=== PATIENT | male | born 1975 | race Caucasian/White ===

== ENCOUNTER 2023-05-22 11:04 | Emergency (ER) | payer OTHER, SELFPAY ==
[2023-05-22 11:13] VITALS: BP 126/84; PULSE 100; TEMP 36.6; O2SAT 98; BMI 25.8
--- NOTE | 2023-05-22 11:27 | XRR_ITS ---
PROCEDURE INFORMATION: Exam: XR Abdomen Exam date and time: 05/22/2023 12:03 PM Age: 48 years old Clinical indication: Generalized; Prior surgery; Surgery date: 6+ months; Surgery type: Umbilical hernia repair with mesh; Patient HX: Bilateral flank/abdominal pain; Constipation; HX kidney stones & umbilical hernia repair (2019); Additional info: Bilateral flank/abdominal pain; Constipation; HX kidney stones & umbilical hernia repair (2019) TECHNIQUE: Imaging protocol: Radiologic exam of the abdomen. Views: Frontal supine view of the abdomen. 1 View. COMPARISON: No relevant prior studies available. FINDINGS: Several calcified phleboliths are present in the pelvis. Possible 4 mm right upper quadrant calcification which may represent radiodense ingested material within the colon but small gallstone could have this appearance. There is no organomegaly identified. Psoas margins are preserved. Visualized lung bases are grossly clear Gastrointestinal tract: Overall the bowel gas pattern is nonspecific but nonobstructive. Small amount of gas identified within the small intestine. Bones/joints: No acute osseous abnormality evident. XR/XR abdomen 1V* [id number] IMPRESSION: Nonspecific but nonobstructive appearing bowel gas pattern. New line 2. Right upper quadrant radiodensity, possibly a small gallstone. This could be further assessed by gallbladder ultrasound if clinically desired.
--- NOTE | 2023-05-22 11:29 | ED_ITS ---
HPI - Abdominal Pain General: Chief Complaint: Abdominal Pain Stated Complaint: Abd pain Time Seen by Provider: 05/22/23 11:17 History of Present Illness: 48-year-old male presents emergency department complaints of generalized bilateral lower abdominal pain that started approximately 1 week ago. He states he was seen on Tuesday at an emergency department in [facility] and was provided pain medications, Bactrim antibiotic, and was advised that they would treat his discomfort as a urinary tract infection. He states his current pain is a 7 out of 10 and constant. He states he does have a history of umbilical hernia repair with mesh. He states he does work for the [employer] service and intermittently does have to lift heavy objects but has not lifted anything heavy with then many months. He states he is normally regular with his bowel movements but over the previous several days he has had increased difficulty with his bowel movements. He states that nothing seems to make the pain better nothing seems to make the pain worse. He denies fever, nausea vomiting or diarrhea. He denies hematemesis or hematochezia. Patient states that on of this week the patient was scheduled for a esophageal dilatation and they did not do that as the patient had significant ulcers to his esophagus and was told by his GI doctor to start taking omeprazole and they would follow-up in approximately 2 months. Associated Symptoms: Reports constipation; Denies diarrhea, nausea and vomiting Review of Systems General: Reports: 10 or more systems reviewed and unremarkable except in HPI and below GI: Reports: abdominal pain and constipation; Denies: nausea, vomiting or diarrhea [facility] ED PFSH: Medical History Contact dermatitis and eczema Surgical History H/O vasectomy Hx of tonsillectomy Hx of umbilical hernia repair Social History Smoking and tobacco/nicotine status: never used tobacco/nicotine Alcohol intake: current Alcohol intake frequency: holidays/special occasions only Substance/Drug Use: never Current gender identity: Male Physical Exam Narrative: EXAM NARRATIVE: Constitutional: the patient appears well nourished and with normal development. Vital signs reviewed as documented. HENMT: Normocephalic, atraumatic. External ears with normal appearance without drainage. Nose without drainage, normal appearance. Mucus membranes moist. Neck is supple, No jugular venous distension, trachea is midline, no appreciable carotid bruits. No lymphadenopathy. No meningeal signs. Flexion, extension and lateral rotation is without pain. Eyes: Pupils are equal, round, reactive to light and accommodation. No scleral icterus. Extra-ocular movement are intact. Thorax is symmetrical and with equal rise and fall with respirations. Resp: Lungs are clear to auscultation. No wheezes, rales, crackles or ronchi at present. Cardio: Regular rate and rhythm. Positive S1, S2. No appreciable murmurs, rubs or gallops. GI: Abdominal exam reveals normal bowel sounds to all quadrants. No organomegaly. No obvious palpable masses noted. No hepatomegally appreciated. Soft, nontender to palpation. Extremity: Extremities are non-edematous and both femoral and pedal pulses are 2+ and equal bilaterally. Moves all extremities well, sensation in all extremities. Neuro: Alert and oriented x4, person, place, time and situation. Cranial nerves II through XII are grossly intact, there is no focal neurological deficits that I can appreciate at present. Motor strength in the upper and lower extremities are equal and bilateral 5/5. Psych: Cooperative, calm, normal thought process, appropriate judgment. Skin: No lesions, rashes. No gross abnormalities noted. Back: Symmetrical, no obvious deformity, No CVA tenderness Course Vital Signs: Vital signs: Vital Signs Temperature 98 F 05/22/23 11:13 Pulse Rate 100 05/22/23 11:13 Blood Pressure 126/84 05/22/23 11:13 Pulse Oximetry 98 05/22/23 11:13 Oxygen Delivery Me thod Room Air 05/22/23 11:13 MDM - Abdominal Pain Medical Decision Making Physical exam completed and documented, I will provide him for evaluation of CBC, CMP, lipase plain film x-ray we will attempt to obtain the medical records from the [place] emergency department visit on Tuesday of this last week. Medical Records I reviewed the patient's medical records. Lab Data I reviewed the patient's lab results. 05/22/23 11:24 05/22/23 11:24 Labs/Radiology: Laboratory Results WBC 8.05 10^3/uL (3.29-11.43) 05/22/23 11:24 RBC 6.22 10^6/uL (3.85-5.65) H 05/22/23 11:24 Hgb 18.20 g/dL (11.27-16.99) H 05/22/23 11:24 Hct 53.6 % (37-53) H 05/22/23 11:24 MCV 86.2 fl (82-101) 05/22/23 11:24 MCH 29.3 pg (27-33) 05/22/23 11:24 MCHC 34.0 g/dL (30-55) 05/22/23 11:24 RDW 12.0 % (12.1-15.1) L 05/22/23 11:24 Plt Count 286 10^3/cmm (157-399) 05/22/23 11:24 MPV 9.8 fL (7.4-10.4) 05/22/23 11:24 Neut % (Auto) 53.4 % 05/22/23 11:24 Lymph % (Auto) 34.9 % 05/22/23 11:24 [place] % (Auto) 8.2 % 05/22/23 11:24 Eos % (Auto) 2.6 % 05/22/23 11:24 Baso % (Auto) 0.7 % 05/22/23 11:24 Neut # (Auto) 4.29 10^3/uL (1.8-7.7) 05/22/23 11:24 Lymph # (Auto) 2.8 10^3/uL (0.8-4.8) 05/22/23 11:24 [place] # (Auto) 0.7 10^3/uL (0.2-0.9) 05/22/23 11:24 Eos # (Auto) 0.2 10^3/uL (0.0-0.8) 05/22/23 11:24 Baso # (Auto) 0.1 10^3/uL (0.0-0.1) 05/22/23 11:24 Nucleated RBC % (auto) 0 % 05/22/23 11:24 Nucleated RBCs # 0.0 /100WBC 05/22/23 11:24 Sodium 133 mmol/L (136-145) L 05/22/23 11:24 Potassium 4.8 mmol/L (3.5-5.1) 05/22/23 11:24 Chloride 98 mmol/L (98-107) 05/22/23 11:24 Carbon Dioxide 27 mmol/L (22-29) 05/22/23 11:24 Anion Gap 12.8 (5-19) 05/22/23 11:24 BUN 16 mg/dL (6-20) 05/22/23 11:24 Creatinine 1.5 mg/dL (0.7-1.2) H 05/22/23 11:24 GFR Calculation 49.7 mL/min (90-130) L 05/22/23 11:24 Glucose 102 mg/dL (65-115) 05/22/23 11:24 Calculated Osmolality 277 mOsm/kg (285-295) L 05/22/23 11:24 Calcium 10.0 mg/dL (8.5-10.5) 05/22/23 11:24 Total Bilirubin 0.3 mg/dL (0.15-1.2) 05/22/23 11:24 AST 18 U/L (0-40) 05/22/23 11:24 ALT 18 U/L (0-41) 05/22/23 11:24 Alkaline Phosphatase 80 U/L (40-130) 05/22/23 11:24 Total Protein 8.4 g/dL (6.6-8.7) 05/22/23 11:24 Albumin 4.9 g/dL (3.5-5.2) 05/22/23 11:24 Globulin 3.5 g/dL (1.3-4.6) 05/22/23 11:24 Lipase 29 U/L (13-60) 05/22/23 11:24 Urine Color Yellow (Yellow) 05/22/23 11:29 Urine Appearance Clear (CLEAR) 05/22/23 11:29 Urine pH 5 (5-7) 05/22/23 11:29 Ur Specific [place] 1.005 (1.005-1.030) 05/22/23 11:29 Urine Protein Neg (Negative) 05/22/23 11:29 Urine Glucose (UA) Norm (Normal) 05/22/23 11:29 Urine Ketones Negative (Negative) 05/22/23 11:29 Urine Blood Neg (Negative) 05/22/23 11:29 Urine Nitrate Negative (Negative) 05/22/23 11:29 Urine Bilirubin Neg (Negative) 05/22/23 11:29 Urine Urobilinogen Norm mg/dL (Negative) 05/22/23 11:29 Ur Leukocyte Esterase Negative (Negative) 05/22/23 11:29 XR interpretation done by ED provider, pending radiology final review ED provider radiology interpretation(s): Constipation Discharge Plan Discharge Patient Disposition: Home Clinical Impression: Abdominal pain, Acute constipation Condition: Stable Prescriptions: New sennosides-docusate sodium [Senna-S] 8.6-50 mg tablet 2 tab-cap PO BID Qty: 60 0RF No Action triamcinolone acetonide 0.5 % ointment 1 applic topical BID Qty: 15 5RF Rx Instructions: to left axilla and shoulder as directed sulfamethoxazole-trimethoprim [Bactrim DS] 800-160 mg tablet 1 tab PO BID 7 Days Qty: 14 0RF mupirocin 2 % ointment 1 applic topical TID 10 Days Qty: 22 0RF Discharge Orders: Discharge ED (Routine); Ordered 05/22/23 Ordered By: Royer Haji Referrals: Nola Bedoya FNP [Primary Care Provider] - Discharge Diet: Advance as tolerated Discharge Activity: Resume usual activity Patient Instructions: Abdominal Pain (ED), Opioid Safety, Pain Management Activity Restrictions/Additional Instructions: Activity Restrictions/Additional Instructions: Thank you for choosing [facility] for your healthcare needs today. Please realize that you were seen in the Emergency Department and that we are providing you with an emergency medical screening exam and this may not be complete and all inclusive of all the testing and or medical work-up that you may need to determine your ailment or severity of your illness. It is very important that you follow-up as instructed with your Primary care provider or Specialist for additional evaluation and to discuss your medical treatment plan. You may return to the Emergency Department should you have concerns or if your condition changes or worsens in any way. Coding Level of Care Code ED Official Greeter for Ayesha Boykin
[2023-05-22 11:37] LABS: Add Urine Microscopic? NO; Charge for UA Resulting for Rev
[2023-05-22 11:40] LABS: Basophils # 0.1 10^3/uL (0.0-0.1); Basophils % 0.7 %; Eosinophils # 0.2 10^3/uL (0.0-0.8); Eosinophils % 2.6 %; Hematocrit 53.6 % (37-53); Lymphocytes # 2.8 10^3/uL (0.8-4.8); Lymphocytes % 34.9 %; Mean Corpuscular Hemoglobin 29.3 pg (27-33); Mean Corpuscular Volume 86.2 fl (82-101); Mean Platelet Volume 9.8 fL (7.4-10.4); Monocytes # 0.7 10^3/uL (0.2-0.9); Monocytes % 8.2 %; Neutrophils # 4.29 10^3/uL (1.8-7.7); Neutrophils % 53.4 %; Nucleated Red Blood Cells % 0 %; Platelet Count 286 10^3/cmm (157-399); Red Blood Count 6.22 10^6/uL (3.85-5.65); White Blood Count 8.05 10^3/uL (3.29-11.43)
[2023-05-22 11:41] LABS: Bilirubin Urine Neg (Negative); Blood Urine Neg (Negative); Glucose Urine UA Norm (Normal); Ketones Urine Negative (Negative); Leukocyte Esterase Urine Negative (Negative); Nitrate Urine Negative (Negative); Protein Urine Neg (Negative); Specific Gravity, Urine 1.005 (1.005-1.030); Urine Appearance Clear (CLEAR); Urine Color Yellow (Yellow); Urobilinogen Urine Norm (Negative); pH Urine 5 (5-7)
[2023-05-22 11:53] LABS: Alanine Aminotransferase 18 U/L (0-41); Albumin Level 4.9 g/dL (3.5-5.2); Alkaline Phosphatase 80 U/L (40-130); Anion Gap 12.8 (5-19); Aspartate Amino Transferase 18 U/L (0-40); Blood Urea Nitrogen 16 mg/dL (6-20); Carbon Dioxide 27 mmol/L (22-29); Chloride 98 mmol/L (98-107); Globulin 3.5 g/dL (1.3-4.6); Glomerular Filtration Rate 49.7 mL/min (90-130); Glucose 102 mg/dL (65-115); Lipase 29 U/L (13-60); Osmolality Calculated 277 mOsm/kg (285-295); Potassium 4.8 mmol/L (3.5-5.1); Sodium 133 mmol/L (136-145); Total Bilirubin 0.3 mg/dL (0.15-1.2); Total Protein 8.4 g/dL (6.6-8.7)
[2023-05-22] MEDS: sodium chloride 0.9% 1,000 ML 999 ML IV (12:41)
[2023-05-22] MEDS: methylnaltrexone 12 /0.6 mL INJ 12 MG SUBCUT (12:47)
== END 2023-05-22 13:17 | disposition home or self-care (01) ==
PROVIDERS: Emergency Provider Internal Medicine; PCP Nurse Practitioner Family
DX: R10.30 Lower abdominal pain, unspecified (principal); K59.00 Constipation, unspecified
CPT/HCPCS: 74018; 80053; 81003; 83690; 85025; 96360; 96372; 99284; J2212; J7030

== ENCOUNTER 2023-06-04 17:55 | Emergency (ER) | payer OTHER, SELFPAY ==
[2023-06-04 18:42] LABS: Basophils # 0.1 10^3/uL (0.0-0.1); Basophils % 0.8 %; Eosinophils # 0.3 10^3/uL (0.0-0.8); Eosinophils % 4.3 %; Hematocrit 47.2 % (37-53); Lymphocytes # 3.3 10^3/uL (0.8-4.8); Lymphocytes % 41.9 %; Mean Corpuscular HGB Conc 33.3 g/dL (30-55); Mean Corpuscular Hemoglobin 29.2 pg (27-33); Mean Corpuscular Volume 87.7 fl (82-101); Mean Platelet Volume 9.8 fL (7.4-10.4); Monocytes # 0.8 10^3/uL (0.2-0.9); Monocytes % 9.6 %; Neutrophils % 43.3 %; Nucleated Red Blood Cells % 0 %; Platelet Count 275 10^3/cmm (157-399); Red Blood Count 5.38 10^6/uL (3.85-5.65); Red Cell Distribution Width 12.1 % (12.1-15.1); White Blood Count 7.85 10^3/uL (3.29-11.43)
[2023-06-04 18:54] VITALS: BP 118/82; PULSE 75; RESP 16; TEMP 36.7; O2SAT 98; BMI 25.8
[2023-06-04 19:00] LABS: Alanine Aminotransferase 19 U/L (0-41); Albumin Level 4.3 g/dL (3.5-5.2); Alkaline Phosphatase 73 U/L (40-130); Anion Gap 14.5 (5-19); Aspartate Amino Transferase 21 U/L (0-40); Blood Urea Nitrogen 17 mg/dL (6-20); Calcium 9.4 mg/dL (8.5-10.5); Carbon Dioxide 24 mmol/L (22-29); Chloride 104 mmol/L (98-107); Globulin 3.1 g/dL (1.3-4.6); Glomerular Filtration Rate 71.1 mL/min (90-130); Glucose 91 mg/dL (65-115); Lipase 37 U/L (13-60); Osmolality Calculated 287 mOsm/kg (285-295); Potassium 4.5 mmol/L (3.5-5.1); Sodium 138 mmol/L (136-145); Total Bilirubin 0.3 mg/dL (0.15-1.2); Total Protein 7.4 g/dL (6.6-8.7)
[2023-06-04 19:22] LABS: Add Urine Microscopic? NO; Charge for UA Resulting for Rev
[2023-06-04 19:41] LABS: Bilirubin Urine Neg (Negative); Blood Urine Neg (Negative); Glucose Urine UA Norm (Normal); Ketones Urine Negative (Negative); Leukocyte Esterase Urine Negative (Negative); Nitrate Urine Negative (Negative); Protein Urine Neg (Negative); Urine Appearance Clear (CLEAR); Urine Color Yellow (Yellow); Urobilinogen Urine Neg (Negative); pH Urine 6 (5-7)
--- NOTE | 2023-06-04 21:13 | ED_ITS ---
HPI - Abdominal Pain 2 General: Chief Complaint: Abdominal Pain Stated Complaint: abd pain, back pain, hard time using restroom Time Seen by Provider: 06/04/23 21:10 History of Present Illness: 48-year-old male patient comes in today with complaints of left lower quadrant abdominal pain radiating to the left flank. Patient was seen 2 weeks ago here and was diagnosed with constipation. Patient reports he has to continue to use MiraLAX to maintain his bowels. Patient appears nontoxic. Patient appears in mild to moderate pain. Patient denies any fever or chills or nausea or vomiting. Associated Symptoms: Reports constipation; Denies chills, diarrhea, fever(s), nausea and vomiting Review of Systems 2 General: Reports: 10 or more systems reviewed and unremarkable except in HPI and below Const: Denies: fever(s) or chills Card: Denies: chest pain Resp: Denies: dyspnea GI: Reports: constipation; Denies: nausea, vomiting or diarrhea : Denies: difficulty urinating Musc: Reports: back pain Skin/Breast: Denies: rash PFSH ED 2 PFSH: Medical History Contact dermatitis and eczema Surgical History H/O vasectomy Hx of tonsillectomy Hx of umbilical hernia repair Social History Smoking and tobacco/nicotine status: never used tobacco/nicotine Alcohol intake: current Alcohol intake frequency: holidays/special occasions only Substance/Drug Use: never Current gender identity: Male Physical Exam 2 Const: COMMON NORMALS: alert HENMT: COMMON NORMALS: normocephalic HEAD & SCALP: normocephalic MOUTH: Normal oral and palatal mucosa present Neck/C-Spine: COMMON NORMALS: full ROM Resp: COMMON NORMALS: normal respiratory effort and clear to auscultation bilaterally AUSCULTATION: clear to auscultation bilaterally Cardio: COMMON NORMALS: regular rate and regular rhythm RATE: regular rate RHYTHM: regular rhythm GI: COMMON NORMALS: Soft to palpation AUSCULTATION: Yes normoactive bowel sounds PALPATION: Yes Soft to palpation and Yes Tenderness to palpation present (GI) Details: LLQ : COMMON NORMALS: Yes no CVA tenderness BLADDER/KIDNEY EXAM: Yes no CVA tenderness Back/Pelvis: COMMON NORMALS: no CVA tenderness THORACIC SPINE/UPPER BACK: N o thoracic spinal tenderness LUMBAR SPINE/LOWER BACK: No lumbar spinal tenderness and Yes paraspinal muscle tenderness Lumbar paraspinal muscle tenderness: left Extremity: COMMON NORMALS: normal to inspection Neuro: SENSORIUM/ORIENTATION: Yes alert Skin: COMMON NORMALS: turgor normal GENERAL SKIN EXAM: turgor normal Course 2 Vital Signs: Vital signs: Vital Signs Temperature 98.0 F 06/04/23 18:54 Pulse Rate 75 06/04/23 18:54 Respiratory Rate 16 06/04/23 18:54 Blood Pressure 118/82 06/04/23 18:54 Pulse Oximetry 98 06/04/23 18:54 Oxygen Delivery Me thod Room Air 06/04/23 18:54 MDM - Abdominal Pain Medical Decision Making 48-year-old male patient comes in today for left lower quadrant abdominal pain and low back pain on the left side. Patient appears nontoxic. Patient reports pains been going on about 3 weeks now. Patient is also had increased difficulty with constipation. Respirations are even. Lungs are clear to auscultation. Bowel sounds are normal. Abdomen soft with some tenderness in the left lower quadrant. Patient also has some muscle skeletal tenderness to the left paraspinous muscles of the lumbar spine. Vital signs are normal. Differential diagnosis includes but not limited to renal colic, diverticulitis, colitis, irritable bowel syndrome, surgical adhesions, hernia, bowel obstruction, constipation. CBC and CMP was normal. CT of the abdomen pelvis noted no bowel abnormalities but did show some significant foraminal stenosis at the L5-S1 area. I think this may correlate with patient's back pain and muscle tension in his back. Patient may also be having some referred pain to the abdomen. Recommend patient follow-up with orthopedic spine for further evaluation and treatment and return to the ER for worsening symptoms or new concerns. Lab Data 06/04/23 18:37 06/04/23 18:37 Labs/Radiology: Radiology Impressions Abdomen/Pelvis CT 06/04/23 21:19 IMPRESSION: No acute findings. COMMENTS: Consistent with the [employer]'s Incidental Findings Committee white paper (J Am Yolanda Radiol 2018): Any incidental renal lesion less than 1 cm or classified as too small to characterize, or any incidental cystic renal lesion characterized as simple-appearing, is likely benign. No follow-up imaging is recommended for these lesions per consensus recommendations based on imaging criteria. Laboratory Results WBC 7.85 10^3/uL (3.29-11.43) 06/04/23 18:37 RBC 5.38 10^6/uL (3.85-5.65) 06/04/23 18:37 Hgb 15.70 g/dL (11.27-16.99) 06/04/23 18:37 Hct 47.2 % (37-53) 06/04/23 18:37 MCV 87.7 fl (82-101) 06/04/23 18:37 MCH 29.2 pg (27-33) 06/04/23 18:37 MCHC 33.3 g/dL (30-55) 06/04/23 18:37 RDW 12.1 % (12.1-15.1) 06/04/23 18:37 Plt Count 275 10^3/cmm (157-399) 06/04/23 18:37 MPV 9.8 fL (7.4-10.4) 06/04/23 18:37 Neut % (Auto) 43.3 % 06/04/23 18:37 Lymph % (Auto) 41.9 % 06/04/23 18:37 [place] % (Auto) 9.6 % 06/04/23 18:37 Eos % (Auto) 4.3 % 06/04/23 18:37 Baso % (Auto) 0.8 % 06/04/23 18:37 Neut # (Auto) 3.40 10^3/uL (1.8-7.7) 06/04/23 18:37 Lymph # (Auto) 3.3 10^3/uL (0.8-4.8) 06/04/23 18:37 [place] # (Auto) 0.8 10^3/uL (0.2-0.9) 06/04/23 18:37 Eos # (Auto) 0.3 10^3/uL (0.0-0.8) 06/04/23 18:37 Baso # (Auto) 0.1 10^3/uL (0.0-0.1) 06/04/23 18:37 Nucleated RBC % (auto) 0 % 06/04/23 18:37 Nucleated RBCs # 0.0 /100WBC 06/04/23 18:37 Sodium 138 mmol/L (136-145) 06/04/23 18:37 Potassium 4.5 mmol/L (3.5-5.1) 06/04/23 18:37 Chloride 104 mmol/L (98-107) 06/04/23 18:37 Carbon Dioxide 24 mmol/L (22-29) 06/04/23 18:37 Anion Gap 14.5 (5-19) 06/04/23 18:37 BUN 17 mg/dL (6-20) 06/04/23 18:37 Creatinine 1.1 mg/dL (0.7-1.2) 06/04/23 18:37 GFR Calculation 71.1 mL/min (90-130) L 06/04/23 18:37 Glucose 91 mg/dL (65-115) 06/04/23 18:37 Calculated Osmolality 287 mOsm/kg (285-295) 06/04/23 18:37 Calcium 9.4 mg/dL (8.5-10.5) 06/04/23 18:37 Total Bilirubin 0.3 mg/dL (0.15-1.2) 06/04/23 18:37 AST 21 U/L (0-40) 06/04/23 18:37 ALT 19 U/L (0-41) 06/04/23 18:37 Alkaline Phosphatase 73 U/L (40-130) 06/04/23 18:37 Total Protein 7.4 g/dL (6.6-8.7) 06/04/23 18:37 Albumin 4.3 g/dL (3.5-5.2) 06/04/23 18:37 Globulin 3.1 g/dL (1.3-4.6) 06/04/23 18:37 Lipase 37 U/L (13-60) 06/04/23 18:37 Urine Color Yellow (Yellow) 06/04/23 19:07 Urine Appearance Clear (CLEAR) 06/04/23 19:07 Urine pH 6 (5-7) 06/04/23 19:07 Ur Specific [place] 1.020 (1.005-1.030) 06/04/23 19:07 Urine Protein Neg (Negative) 06/04/23 19:07 Urine Glucose (UA) Norm (Normal) 06/04/23 19:07 Urine Ketones Negative (Negative) 06/04/23 19:07 Urine Blood Neg (Negative) 06/04/23 19:07 Urine Nitrate Negative (Negative) 06/04/23 19:07 Urine Bilirubin Neg (Negative) 06/04/23 19:07 Urine Urobilinogen Neg mg/dL (Negative) 06/04/23 19:07 Ur Leukocyte Esterase Negative (Negative) 06/04/23 19:07 All radiology interpretation(s) finalized by discharge Discharge Plan Discharge Patient Disposition: Home Clinical Impression: Foraminal stenosis of lumbosacral region Condition: Stable Prescriptions: No Action triamcinolone acetonide 0.5 % ointment 1 applic topical BID Qty: 15 5RF Rx Instructions: to left axilla and shoulder as directed sulfamethoxazole-trimethoprim [Bactrim DS] 800-160 mg tablet 1 tab PO BID 7 Days Qty: 14 0RF mupirocin 2 % ointment 1 applic topical TID 10 Days Qty: 22 0RF Senna-S 8.6-50 mg tablet 2 tab-cap PO BID Qty: 60 0RF Discharge Orders: Discharge ED (Routine); Ordered 06/04/23 Ordered By: Gene Bautista Referrals: Pa Graham DO [Physician] - Nola Bedoya FNP [Primary Care Provider] - Discharge Diet: Usual diet Discharge Activity: Increase activity as tolerated Patient Instructions: Degenerative Disc Disease (ED), Pain Management Activity Restrictions/Additional Instructions: Activity as tolerated. Gentle stretching range of motion exercises. Use acetaminophen and ibuprofen to control pain. Use muscle relaxer as needed. Follow-up with primary care. Case management will contact you regarding follow- up appointment with orthopedic promotions specialist for further evaluation and treatment. Coding Level of Care Code ED Open End Spinning Operator for Ayesha Boykin
--- NOTE | 2023-06-04 21:19 | CTR_ITS ---
PROCEDURE INFORMATION: Exam: CT Abdomen And Pelvis With Contrast Exam date and time: 06/04/2023 9:54 PM Age: 48 years old Clinical indication: Abdominal pain; Localized; Left lower quadrant (llq); Prior surgery; Surgery date: 6+ months; Surgery type: Umbilical hernia repair; Patient HX: C/O llq/back pain. ; Additional info: Left lower quad abd pain, low back pain TECHNIQUE: Imaging protocol: Computed tomography of the abdomen and pelvis with contrast. Radiation optimization: All CT scans at this facility use at least one of these dose optimization techniques: automated exposure control; mA and/or kV adjustment per patient size (includes targeted exams where dose is matched to clinical indication); or iterative reconstruction. Contrast material: OMNI 350; Contrast volume: 100 ml; Contrast route: INTRAVENOUS (IV); REPORTING DATA: Count of CT and Cardiac NM exams in prior 12 months: This patient has received 0 known CTs and 0 known cardiac nuclear medicine studies in the 12 months prior to the current study. COMPARISON: CR (ABDOMEN, ) 05/22/2023 12:03 PM RADIATION DOSE METRICS: Total DLP (mGy-cm): 469.41 FINDINGS: Liver: Small hypodense lesion with discontinuous peripheral nodular enhancement in the posterior right hepatic lobe, most consistent with hemangioma. Otherwise unremarkable. Gallbladder and bile ducts: No calcified stones. No biliary ductal dilation. No pericholecystic fluid. Pancreas: Unremarkable. No duct dilation. Spleen: Unremarkable. Adrenal glands: Unremarkable. Kidneys and ureters: Bilateral renal cysts. No hydronephrosis or hydroureter. No renal or ureteral calculi. Stomach and bowel: No bowel obstruction. Appendix: Normal appendix. Intraperitoneal space: Unremarkable. No free air. No significant fluid collection. Vasculature: No abdominal aortic aneurysm. Lymph nodes: No enlarged lymph nodes. Urinary bladder: Unremarkable as visualized. Reproductive: Unremarkable as visualized. Bones/joints: There is grade 1 retrolisthesis of L5 on S1 with moderate to severe bilateral neural foraminal narrowing. No acute fracture. Soft tissues: Unremarkable. CT/CT abdomen pelvis w con* [id number] IMPRESSION: No acute findings. COMMENTS: Consistent with the [employer]'s Incidental Findings Committee white paper (J Am Yolanda Radiol 2018): Any incidental renal lesion less than 1 cm or classified as too small to characterize, or any incidental cystic renal lesion characterized as simple-appearing, is likely benign. No follow-up imaging is recommended for these lesions per consensus recommendations based on imaging criteria.
[2023-06-04] MEDS: ketorolac 30 mg/mL INJ 15 MG IVP (21:32)
[2023-06-04] MEDS: iohexol 350 mg/mL 500 mL Btl (per mL) IV (22:01)
[2023-06-04 23:09] VITALS: PULSE 74; RESP 16; O2SAT 98
--- NOTE | 2023-06-06 08:18 | DCPLANNER ---
Message was sent to ortho on 06/06/23 at 0820 am. Clinic to contact patient.
== END 2023-06-04 23:08 | disposition home or self-care (01) ==
PROVIDERS: Emergency Provider Nurse Practitioner Family; PCP Nurse Practitioner Family
DX: M48.07 Spinal stenosis, lumbosacral region (principal)
CPT/HCPCS: 74177; 80053; 81003; 83690; 85025; 96374; 99285; J1885; Q9967

== ENCOUNTER → 2023-06-21 15:45 | Outpatient (BNVA) | payer OTHER, SELFPAY | PROVIDERS: PCP Nurse Practitioner Family; Referring Provider Nurse Practitioner Family; Visit Provider Orthopaedic Surgery | DX: M54.42 Lumbago with sciatica, left side; M54.41 Lumbago with sciatica, right side; G89.29 Other chronic pain; M43.16 Spondylolisthesis, lumbar region | CPT/HCPCS: 72100 ==

== ENCOUNTER 2023-07-13 15:19 | Outpatient (CLI) | payer OTHER, SELFPAY ==
--- NOTE | 2023-07-13 16:00 | MR_ITS ---
WS: [id number] MRI LUMBAR SPINE NONCONTRAST HISTORY: Pain radiating down LEFT leg for 2 months. COMPARISON: None available. TECHNIQUE: Sagittal and axial multisequence imaging is submitted. Very slight straightening of the normal lumbar lordosis. Disc spaces are mildly desiccated. Most significant narrowing at L5-S1. Conus terminates normally at L1-2 disc level. L1-L2: Mild annular disc bulging with a very shallow RIGHT foraminal disc protrusion. No stenosis. L2-L3: Normal. L3-L4: Very mild annular disc bulging with very mild ligamentum flavum and facet arthritis. No stenos is or nerve root contact. L4-L5: Mild annular disc bulging. LEFT foraminal broad-based disc protrusion with mild bilateral face t joint arthritis. Additional facet arthritis. There is very slight contact by the disc on the LEFT L 4 exiting nerve root. Mild foraminal narrowing. L5-S1: Diffuse osteophytic ridging and annular disc bulging. There is slight retrolisthesis of the L5 vertebral body. There is a central disc protrusion contacting the S1 nerve roots bilaterally without displacement. Moderate bilateral facet joint arthritis. Moderate bilateral foraminal stenosis. IMPRESSION: 1. L5-S1: Slight retrolisthesis of L5 with a central disc bulge, facet arthritis and vertebral body osteophytosis. Resulting in disc contact on the S1 nerve roots bilaterally and moderate bilateral for aminal stenosis. 2. L4-5: LEFT foraminal broad-based disc protrusion with mild contact on the exiting LEFT L4 nerve r oot. Mild foraminal narrowing.
== END 2023-07-13 15:20 | disposition home or self-care (01) ==
LOC: RAD 15:20
PROVIDERS: PCP Nurse Practitioner Family; Visit Provider Orthopaedic Surgery
DX: M54.9 Dorsalgia, unspecified (principal); M43.16 Spondylolisthesis, lumbar region; M51.26 Other intervertebral disc displacement, lumbar region
CPT/HCPCS: 72148